=== PATIENT | female | born 1975 | race Caucasian/White ===

== ENCOUNTER 2018-08-14 01:24 | Outpatient (CLI) | payer BC, SELFPAY ==
--- NOTE | 2018-08-14 09:58 | DI.NM_ITS ---
SYMPTOMS/DIAGNOSIS: RIGHT UPPER QUADRANT PAIN, LOWER RIB PAIN, H/O BREAST CA AND RADIATION THERAPY BONE SCAN: The patient received 23.5 mCi of technetium 99m MDP and whole body imaging was performed according to protocol. There are no priors for comparison. There is normal activity seen in the kidneys and urinary bladder. There is symmetric increased radiotracer uptake in the shoulders, likely degenerative in nature. There are foci of increased radiotracer uptake in two contiguous right ribs anterolaterally. These appear to be the right 7th and 8th ribs. There is symmetric radiotracer uptake seen at the sternoclavicular joints bilaterally, which is likely degenerative. No other significant increased radiotracer uptake is seen in the axial or appendicular skeleton. IMPRESSION: 1. Likely degenerative changes involving the upper extremities. 2. Punctate radiotracer uptake in two contiguous ribs. This likely reflects a traumatic injury. Metastatic disease, though not entirely excluded, is considered less likely.
== END 2018-08-14 01:44 ==
PROVIDERS: PCP Family Medicine; Visit Provider Internal Medicine Medical Oncology
DX: R10.11 Right upper quadrant pain (principal); R07.81 Pleurodynia; Z85.3 Personal history of malignant neoplasm of breast; Z92.3 Personal history of irradiation
CPT/HCPCS: 78306

== ENCOUNTER 2019-04-14 01:27 | Outpatient (CLI) | payer BC, SELFPAY | END 2019-04-14 01:47 | PROVIDERS: PCP Family Medicine; Visit Provider Family Medicine | DX: R00.0 Tachycardia, unspecified (principal); I49.1 Atrial premature depolarization; I49.3 Ventricular premature depolarization | CPT/HCPCS: 93225 ==

== ENCOUNTER 2019-04-16 14:54 | Outpatient (CLI) | payer BC, SELFPAY ==
--- NOTE | 2019-04-20 09:47 | HOLTER_ITS ---
DATE OF DICTATION: April 20, 2019 STUDY INDICATION: Tachycardia. REQUESTING PROVIDER: Not available. FINDINGS: The patient was monitored for 2 days. Average heart rate 86 bpm, range 62 to 142 bpm. Rare ectopy. Five PVC's, no VT. 45 PAC's, no SVT. No pauses greater than 3 seconds. No high-degree heart block. No patient events. FINAL INTERPRETATION: No significant arrhythmias.
== END 2019-04-16 15:14 ==
PROVIDERS: PCP Family Medicine; Visit Provider Family Medicine
DX: R00.0 Tachycardia, unspecified (principal); I49.1 Atrial premature depolarization; I49.3 Ventricular premature depolarization
CPT/HCPCS: 93226

== ENCOUNTER 2020-02-11 01:48 | Outpatient (CLI) | payer BC, MEDICAID, SELFPAY ==
[2020-02-11 07:33] LABS: Hemoglobin A1C 4.9 % (3.8-5.6)
[2020-02-11 08:13] LABS: ALT 26 U/L (14-59); AST 20 U/L (15-37); Albumin 4.1 g/dL (3.4-5.0); Alkaline Phosphatase 64 U/L (46-116); Anion Gap 7.8 mmol/L (3-11); BUN 15 mg/dL (7-18); Bilirubin, Total 0.5 mg/dL (0.2-1.0); CO2 27.2 mmol/L (21.0-32.0); CREATININE 0.77 mg/dL (0.55-1.02); Calculated LDL 120 mg/dL (<100); Chloride 104 mmol/L (98-107); Cholesterol 203 mg/dL (<200); Glucose 85 mg/dL (74-106); HDL Cholesterol 65 mg/dL (40-60); Potassium 3.9 mmol/L (3.5-5.1); Sodium 139 mmol/L (136-145); Total Protein 7.3 g/dL (6.4-8.2); Triglyceride 91 mg/dL (<150)
[2020-02-11 08:31] LABS: Vitamin D 25 Total 36.6 ng/ml (30-100)
== END 2020-02-11 02:08 ==
PROVIDERS: PCP Family Medicine; Visit Provider Internal Medicine Medical Oncology
DX: C50.111 Malignant neoplasm of central portion of right female breast (principal); Z17.1 Estrogen receptor negative status [ER-]
CPT/HCPCS: 36415; 80053; 80061; 82306; 83036

== ENCOUNTER 2020-04-26 12:14 | Outpatient (REF) | payer BC, SELFPAY ==
--- NOTE | 2020-04-26 11:00 | PAPFT_PTH ---
PATIENT: Jennifer Carlos LOC: [facility] U#:[id number] AGE/SX: 45/F ROOM: RE04/26/[address]: Adele Haji MD, DC : 1975 BED: DIS: 04/26/2020 SPEC #: [id number] RECD: 04/26/20 11:00 STATUS: MANAV LOERA #: [id number] HENRY: 04/26/20 11:[address]: Adele Haji DEPT: [facility] Cytology RECD BY: Mckenzie Adams Tissues: 1 - CX/ENDOCX FOR PAP SMEARS Procedures: PAP THIN PREP/UVM Screening HPV DNA PROBE Comments: [id number]
== END 2020-04-26 12:34 ==
LOC: LBN 12:14
PROVIDERS: PCP Family Medicine; Visit Provider Family Medicine
DX: Z12.4 Encounter for screening for malignant neoplasm of cervix (principal); Z11.51 Encounter for screening for human papillomavirus (HPV)
CPT/HCPCS: 88142; 87624

== ENCOUNTER → 2022-06-04 02:07 | Outpatient (CLI) | payer BC, MEDICAID, SELFPAY ==
--- NOTE | 2022-06-04 11:55 | DI.MAMMO_ITS ---
Exam(s) MG MAMMO SCREENING 60 MIN DUR EXAM: MG MAMMO SCREENING 60 MIN DUR CLINICAL HISTORY: breast cancer screening,PERSONAL H/O BREAST CA, Z85.3 TECHNIQUE: Mammograms were interpreted according to the usual protocol including computer analysis w [employer] CAD system, tomosynthesis and C-view imaging. COMPARISON: 2015 through 2020 FINDINGS: The breasts are composed of heterogeneously dense fibroglandular densities, Breast Density category C . There is post lumpectomy scarring in the lateral subareolar region of the right breast. No suspicious masses or suspicious microcalcifications are seen. No skin thickening or abnormal axillary lymph nodes are seen. There has been no significant change from prior exams. IMPRESSION: BI-RADS Cat 2 - Benign Findings Yearly screening mammography is recommended. Breast Density Category C, heterogeneously Dense. The mammogram demonstrates the patient's breast tissue is dense. Dense breast tissue is very common a nd is not abnormal but dense breast tissue can make it harder to find cancer on a mammogram. Also, de nse breast tissue may increase breast cancer risk. This information about the result of the mammogram report was provided to the patient to raise their awareness. Use this report when you speak with the patient about their risks for breast cancer, which includes their family history. At that time, you may recommend additional screening tests (Ultrasound or MRI) as they might be useful based on their r isk. A negative radiographic report should not delay biopsy if a dominant or clinically suspicious mass is present. Up to ten percent of cancers are not identified on mammography. A negative report may reinforce clinical impression. Adenosis and dense breasts may obscure an underlying neoplasm. False positive reports average 6 to 10%.
== END ==
PROVIDERS: PCP Family Medicine; Visit Provider Family Medicine
DX: Z12.31 Encounter for screening mammogram for malignant neoplasm of breast (principal); Z85.3 Personal history of malignant neoplasm of breast; Z98.890 Other specified postprocedural states
CPT/HCPCS: 77063; 77067

== ENCOUNTER 2022-10-12 06:03 | Day surgery (SDC) | payer BC, MEDICAID, SELFPAY ==
--- NOTE | 2022-10-11 19:48 | PDOC.DSDIS_ITS ---
Date of service: 10/12/22 Time of Service: 07:59 Discharge Plan Disposition Patient Disposition: Home Condition: Good Discharge Details Reason For Visit: Screening colonoscopy Attending Provider: Jeffery Livingston Primary Care Provider: Adele Haji Home Meds and New Rx's Prescriptions: Continued cholecalciferol (vitamin D3) 2,000 unit capsule 2,000 unit PO DAILY calcium carb and citrate-vitD3 1 EACH tablet extended release 1 ea PO DAILY lidocaine [Lidoderm] 5 % adhesive patch,medicated 1 patch topical DAILY Qty: 30 6RF Rx Instructions: leave on most painful area for up to 12 hrs Discontinued bisacodyl [Dulcolax (bisacodyl)] 5 mg tablet,delayed release (DR/EC) 5 mg PO ONCE Qty: 4 0RF Rx Instructions: Take according to provider's instructions for colonoscopy prep. polyethylene glycol 3350 17 gram/dose powder 17 g PO ONCE Qty: 238 0RF Rx Instructions: To be taken as directed by prescriber's office for colonoscopy prep. Discharge Instructions Instructions: Colorectal Polyps (GEN) Additional Instructions: Jennifer, we were able to complete your colonoscopy today without any difficulty. I found 2 polyps. Based on their location, and the characteristics, I suspect these are benign hyperplastic polyps. I removed both of them, and the final pa thology report will clarify what they are. I will notify you when we have those results. Otherwise, your colonoscopy was perfect. 1. If tolerated, consume a soft, low fiber diet for 1-2 days. 2[address] Do not drive, drink alcohol, operate machinery, make critical decisions, or do activities that require coordination or balance for 24 hours. 3. Because air was put into your colon during the procedure, expelling air from your rectum (passing gas or farting) is normal. 4. You may not have a bowel movement for 1-3 days because of the colonoscopy prep. This is normal. 5. Go directly to the emergency room if you notice any of the following: Develop chills (warm to touch), or if you have a thermometer and your temperature is above 101 Difficulty breathing or difficultly swallowing Persistent vomiting Severe abdominal pain, other than gas cramps Severe chest pain Black, tarry stools Any bleeding ? exceeding one tablespoon 6. Call your physician if the site where your intravenous was started becomes red, swollen, painful, and warm to touch. 7. Your physician has reviewed your pre-procedure medications. Please continue to take those medications as previously ordered. You will be given specific information/education regarding any changes to your medications before leaving. Stand Alone Forms: Vanesa Castro (MELLISSAU) Activity:: Activity as Tolerated Diet:: As Tolerated Discharge Orders Discharge Orders: Discharge Order (Routine); Ordered 10/11/22 Ordered By: Jeffery Livingston DS: Diagnosis Discharge Diagnosis (1) Screening for colon cancer: Status: Acute Asessment and Plan: Follow-up on polypectomy results
--- NOTE | 2022-10-11 19:50 | COLE_ITS ---
Date of service: 10/12/22 Time of Service: 08:01 Colonoscopy Report Date of procedure: 10/12/22 Pre-op diagnosis general: Screening colonoscopy Post-op diagnosis procedure note: other (Colorectal polyps) Procedure: Colonoscopy with polypectomy Surgeon: Jeffery Livingston Anesthesia Type: General:No Airway Estimated blood loss (mL): 10 Pathology: other (Polyp, polyp at 30 cm) Complications: None Disposition: same day Indications: Jennifer is a 47 year old woman who is here for a screening colonoscopy Prep: Miralax/Dulcolax Procedure Start Time: 07:37 Procedure End Time: 07:53 Retraction Time: 11 Findings: Rectal polyp, and polyp at 30 cm Procedure Description: After the induction of monitored anesthetic care, and with the patient in left lateral decubitus position, I began by performing an external anorectal exam.? Perineum and skin were normal, as was the anal verge.? There was no evidence of external hemorrhoids.? Next, I performed a digital rectal exam.? I did not appreciate any abnormal findings.? Next, I advanced a colonoscope into the rectal vault.? I performed retroflexion.? This was normal.? There was a single rectal polyp. I removed it with cold forceps polypectomy. It was approximately 0.25 cm and sessile. Using insufflation, I then advanced the colonoscope beyond the rectal folds and into the sigmoid colon before advancing towards the cecum.? The quality of the prep was excellent.? The scope was noted to be in the cecum by identification of the ileocecal valve and appendiceal orifice.? I then began withdrawing the colonoscope using repeated irrigation as necessary for full evaluation of the colonic mucosa. Around 30 cm from the anal verge I identified a 0.25 cm polyp. ?It appeared sessile in character. ?I was able to remove this with a cold forcep polypectomy. ?I examined the site, and there was minimal bleeding. ?Once this was completed, I continued to withdraw the scope and examine the remainder of the colonic mucosa.?Once the scope was withdrawn to the level of the rectum, great care was taken to examine portions of the rectal folds.? Finally, the scope was withdrawn and the patient was brought to the same-day surgery recovery unit as the anesthetic wore off. ?The findings and ins tructions were shared with the patient prior to discharge.
[2022-10-12 06:33] VITALS: BP 117/81; PULSE 88; RESP 16; TEMP 36.3; O2SAT 99
--- NOTE | 2022-10-12 07:01 | W.ANESPRE ---
General Info Date of Service Date Performed: 10/12/22 Height: 5 ft 3 in Weight: 85.2 kg Body Mass Index (BMI): 33.3 Surgical Procedure: Operation Date: 10/12/22 07:35 Proposed Procedure Side Surgeon p Colonoscopy Jeffery Livingston MD Meds Allergies and Home Medications Allergies Allergy/AdvReac Type Severity Reaction Status Date / Time No Known Drug Allergies Allergy Unknown Verified 10/10/22 11:19 Home Medication Medication Instructions Recorded calcium carb,cit ER 600 mg-vit D3 1 ea PO DAILY 10/22/17 12.5 mcg (500 unit) tablet,ext.rel cholecalciferol (vitamin D3) 50 2,000 unit PO DAILY 09/22/18 mcg (2,000 unit) capsule lidocaine 5 % topical patch 1 patch topical DAILY #30 ea 06/23/20 (Lidoderm) Current Visit Medications: Current Medications Generic Name Dose Route Start Last Admin Trade Name Freq PRN Reason Stop Dose Admin Hyoscyamine Sulfate 0.125 mg 10/11/22 19:52 Hyoscyamine 0.125 Mg Sl/Oral/Chew SL DIRECTED PRN Ringer's Solution 1,000 mls @ 80 mls/hr 10/12/22 06:00 IV 10/12/22 23:59 INFUSION LUIS ENRIQUE IV Miscellaneous Supplies 1 each 10/12/22 06:00 Iv Access IV 10/12/22 23:59 DIRECTED LUIS ENRIQUE Ondansetron HCl 4 mg 10/11/22 19:52 Ondansetron 4 Mg/2 Ml Vial IVP Q4H PRN PRN Nausea / Vomiting Sodium Chloride 0 ml 10/12/22 06:00 Normal Saline Flush 10 Ml Syr IV 10/12/22 23:59 PRN PRN Sodium Chloride 0 ml 10/12/22 06:00 Normal Saline 10 Ml Vial IJ 10/12/22 23:59 DIRECTED PRN Sterile Water 0 ml 10/12/22 06:00 Water,Injection,Sterile 10 Ml Vial IJ 10/12/22 23:59 DIRECTED PRN PFSH Active Problems Active Problems: Problem Status Onset Code Screening for colon cancer Z12.11 Refusal of blood transfusions as patient is [employer] Z53.1 Disc displacement, 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 Gastroesophageal reflux disease K21.9 Lung nodules R91.8 Personal history of breast cancer 10/04/16 Z85.3 Elbow pain M25.529 Migraine G43.909 Female infertility N97.9 Fatigue 04/17/12 R53.83 Family history of malignant neoplasm of ovary 01/14/12 Z80.41 Family history of malignant neoplasm of breast 01/14/12 Z80.3 Family history of colon cancer 02/10/16 Z80.0 Encounter for routine checking of intrauterine contraceptive device 02/10/16 Z30.431 Closed fracture of multiple ribs of right side 01/01/17 S22.41XA Annual physical exam Z00.00 Elbow pain M25.529 Advance care planning Z71.89 Osteopenia M85.80 Medical History Medical History Breast cancer 6 years post treatment Closed fracture of multiple ribs of right side 01/01/17 initial encounter. [facility] [place]--non-displaced fracture of the right 5th and 6th rib with no bone lesions Family history of breast cancer (01/14/12) Mat aunt Family history of colon cancer (02/10/16) MGM, MGF, Mat 1st cousin at age 45 Family history of ovarian cancer (01/14/12) Mat aunt Fatigue 04/17/12 unspecified Female infertility unspecified but subsequently 2 living children IUD surveillance (02/10/16) Migraine Medical History Comments:: 10/12/22 - [employer]ism Surgical History Surgical History section X 2-pt denies states 2 natural births Colonoscopy - IV Sedation (05/25/16) Endometrial Biopsy 10/22/17 Herniated disc repair Tobacco Smoking/Tobacco Use Status: Never Passive smoking exposure: No Second hand exposure: No Alcohol Alcohol Intake: current Alcohol intake frequency: a few times a week Alcohol type: wine Substance Use Substance use: Never Substance use type: does not use Vital Signs and Lab Results Vital Signs Most Recent Vital Signs in EMR: Most Recent Vital Signs Temp Pulse Resp BP Pulse Ox 36.3 C L 88 16 117/81 99 10/12/22 06:33 10/12/22 06:33 10/12/22 06:33 10/12/22 06:33 10/12/22 06:33 Point of Care Results Point of Care Results: POC- Test(urine) Negative 10/12/22 06:46 Lab Results Blood Type / Crossmatch: No Data to Display Complete Blood Count: No Data to Display Complete Metabolic Panel: No Data to Display Liver Function Panel: No Data to Display Coagulation Panel: No Data to Display Cardiac Panel: No Data to Display Arterial Blood Gas: No Data to Display Venous Blood Gas: No Data to Display Pancreas Panel: No Data to Display Thyroid Panel: No Data to Display Infectious Disease: No Data to Display Blood Cultures: No Data to Display Toxicology Panel: No Data to Display Panel: No Data to Display Anesthesia Assessment and Plan Anesthesia History Personal History: No History of Anesthesia Complications Family History: No Family History of Anesthesia Complications Exercise Tolerance Exercise Tolerance: Metabolic Equivalents>4 Pertinent Negatives Pertinent Negatives: No Major Cardiovascular Symptoms or Complaints and No Major Pulmonary Symptoms or Complaints Cardiac & Pulmonary Exam Cardiac Exam: Normal S1/S2 Heart Sounds Pulmonary Exam: Clear Bilateral Breath Sounds Implantable Cardiac Device Does patient have a Pacemaker or an ICD?: No Airway Exam Known Difficult Airway: No Mallampati Class: 2 Mouth Opening: Normal (> 3cm) Thyromental Distance: Greater than 3 cm Neck Range of Motion: Full ROM Neck Circumference: Normal Teeth Condition: Normal Dentition ASA Classification ASA Score: ASA 2 Emergency Case?: No NPO Status NPO Status: NPO Clears >2 hours, Solids >8 hours Status Status: Negative HCG Anesthesia Plan Resuscitation Status: Full Code Anesthesia Technique: General Anesthesia Airway Planned: Natural Airway Monitors Used: Standard Monitors
[2022-10-12 07:05] VITALS: BMI 33.3
[2022-10-12] MEDS: Lactated Ringers 1,000 ML 80 ML IV (07:15)
--- NOTE | 2022-10-12 07:40 | BOWEL_PTH ---
PATIENT: Jennifer Carlos LOC: [facility] U#:[id number] AGE/SX: 47/F ROOM: RE10/12/[address]: Jeffery Livingston MD : 1975 BED: DIS: 10/12/2022 SPEC #: [id number] RECD: 10/12/22 12:45 STATUS: MANAV RE #: [id number] HENRY: 10/12/22 07:[address]: Jeffery Livingston DEPT: Surgical Specimen RECD BY: Nila Colvin ENTERED: 10/12/22 12:46 SP TYPE: Bowel OTHR DR: Adele Haji MD, DC Tissues: 1 - BIOPSY BOWEL 2 - BIOPSY BOWEL Procedures: GROSS AND MICRO LEVEL 4 Comments: [id number]
[2022-10-12 07:59] VITALS: BP 117/81; PULSE 88; RESP 16; TEMP 36; O2SAT 99
[2022-10-12 08:27] VITALS: BP 112/79; PULSE 72; TEMP 36.1; O2SAT 99
--- NOTE | 2022-10-12 09:43 | W.ANESPOSTOP ---
Postoperative Evaluation Date, Time and Location Date Performed: 10/12/22 Time Performed: 08:07 Patient Location: Day Surgery Unit Vital Signs Most Recent Imported Vital Signs: Most Recent Vital Signs Temp Pulse Resp BP Pulse Ox 36.1 C L 72 16 112/79 99 10/12/22 08:27 10/12/22 08:27 10/12/22 07:59 10/12/22 08:27 10/12/22 08:27 Pain Score Most Recent Pain Score: Most Recent Pain Score Pain Level 0 10/12/22 08:27 Assessment Mental Status: Awake (Alert & Oriented to Patient Baseline) Airway and Respiratory Function: Patent airway with normal (patient baseline) respiratory exam Cardiovascular Function: Hemodynamically Stable Hydration Status: Adequately Hydrated Nausea & Vomiting: No Nausea or Vomiting Pain: Pt. Denies Any Pain Peripheral Nerve Block: Patient did not receive a nerve block
== END 2022-10-12 08:45 | disposition home or self-care (01) ==
PROVIDERS: PCP Family Medicine; Visit Provider Surgery
PROC: 0DJD8ZZ Inspection of Lower Intestinal Tract, Via Natural or Artificial Opening Endoscopic (ICD-10-PCS; CPT 45378; principal; 2022-10-12 07:30)
DX: Z12.11 Encounter for screening for malignant neoplasm of colon (principal); K63.5 Polyp of colon; K62.1 Rectal polyp; Z85.3 Personal history of malignant neoplasm of breast; Z80.0 Family history of malignant neoplasm of digestive organs
CPT/HCPCS: 45380; 81025; 88305

== ENCOUNTER → 2023-06-19 00:39 | Outpatient (CLI) | payer BC, MEDICAID, SELFPAY ==
--- NOTE | 2023-06-19 08:00 | DI.MAMMO_ITS ---
Exam(s) MG MAMMO SCREENING 60 MIN DUR EXAM: MG MAMMO SCREENING 60 MIN DUR CLINICAL HISTORY: breast cancer screening,personal h/o breast ca, z85.3 TECHNIQUE: Bilateral full field digital CC and MLO mammographic images were obtained with 3D tomosyn thesis and utilizing computer aided detection (CAD). COMPARISON: Available for comparison. FINDINGS: Masses/Architectural Distortion: Status post right lumpectomy. Stable nodules are seen in the left b reast. No new areas of architectural distortion are seen. Microcalcifications: No suspicious pleomorphic-type are seen. Skin Thickening/Nipple Retraction: None. IMPRESSION: 1. No significant interval change with no specific features of malignancy noted. 2. Unless there is more urgent need, screening mammography is recommended, as per [employer] guidelines. 3. The findings were discussed with the patient on the date of the examination. BI-RADS Category 2 - Benign Findings Breast Density - Category B - Scattered areas of fibroglandular density Breast density category C or D implies that the patient has dense breast tissue. Dense breast tissue is very common and is not abnormal but dense breast tissue can make it harder to find cancer on a ma mmogram. Also, dense breast tissue may increase their breast cancer risk. This information about the result of the mammogram report was provided to the patient to raise their awareness. Use this report when you speak with the patient about their risks for breast cancer, which includes their family hist ory. At that time, you may recommend for more screening tests (Ultrasound or MRI) as they might be us eful based on their risk. A negative radiographic report should not delay biopsy if a dominant or clinically suspicious mass is present. Up to ten percent of cancers are not identified on mammography. A negative report may reinforce clinical impression. Adenosis and dense breasts may obscure an underlying neoplasm. False positive reports average 6 to 10%. Patient will receive a letter notifying them of these results.
== END ==
PROVIDERS: PCP Family Medicine; Visit Provider Family Medicine
DX: Z85.3 Personal history of malignant neoplasm of breast (principal); Z12.31 Encounter for screening mammogram for malignant neoplasm of breast; R92.323 Mammographic fibroglandular density, bilateral breasts
CPT/HCPCS: 77063; 77067

== ENCOUNTER 2023-06-25 09:57 | Outpatient (REF) | payer BC, SELFPAY ==
--- NOTE | 2023-06-25 08:45 | PAPFT_PTH ---
PATIENT: Jennifer Carlos LOC: [facility] U#:[id number] AGE/SX: 48/F ROOM: RE06/25/[address]: Adele Haji MD, DC : 1975 BED: DIS: 06/25/2023 SPEC #: [id number] RECD: 06/25/23 12:43 STATUS: MANAV REQ #: [id number] HENRY: 06/25/23 08:[address]: Adele Haji DEPT: [facility] Cytology RECD BY: Nila Colvin Tissues: 1 - CX/ENDOCX FOR PAP SMEARS Procedures: PAP THIN PREP/UVM Screening HPV DNA PROBE Comments: [id number]
== END 2023-06-25 09:58 | disposition home or self-care (01) ==
LOC: LBN 09:57
PROVIDERS: PCP Family Medicine; Visit Provider Family Medicine
DX: Z12.4 Encounter for screening for malignant neoplasm of cervix (principal)
CPT/HCPCS: 88142; 87624

== ENCOUNTER → 2023-06-27 03:42 | Outpatient (CLI) | payer BC, SELFPAY ==
--- NOTE | 2023-06-27 07:00 | DI.DEXA_ITS ---
Exam(s) XR DEXA BONE DENSITY W/WO CONSTANCE EXAM: XR DEXA BONE DENSITY W/WO CONSTANCE CLINICAL HISTORY: h/o breast cancer,z85.3,screening for osteoporosis TECHNIQUE: [employer] C densitometer analysis of left hip, lumbar spine and left forearm. Lat eral survey image of the thoracic and lumbar spine. COMPARISON: DX DEXA BONE DENSITY WITH CONSTANCE from 12/04/2016 FINDINGS: Lateral view of the thoracic and lumbar spine shows no evidence of compression fractures. Bone mineral density measurements of the lumbar spine correspond to a total T-score of 0.7, in the n ormal range. This represents a 5.1 percent increase from 2017. Bone mineral density measurements of the left hip correspond to a total T-score of 0.5. This is not significantly changed from 2017. The femoral neck T-score is -0.2 in the normal range.. Theleft forearm bone mineral density measurements correspond to a T-score of the distal 3rd of -0.6, in the normal range.. IMPRESSION: Normal bone mineral density.
== END ==
PROVIDERS: PCP Family Medicine; Visit Provider Family Medicine
DX: Z85.3 Personal history of malignant neoplasm of breast (principal); Z13.820 Encounter for screening for osteoporosis
CPT/HCPCS: 77080

== ENCOUNTER 2024-06-30 02:38 | Outpatient (CLI) | payer BC, SELFPAY ==
--- NOTE | 2024-06-30 | DI.US_ITS ---
Exam(s) US BREAST LT COMPLETE MG MAMMO SCREENING 60 MIN DUR EXAM: MG MAMMO SCREENING AND COMPLETE LEFT BREAST ULTRASOUND CLINICAL HISTORY: breast cancer screening,PERSONAL H/O BREAST CA,Z12.39. TECHNIQUE: Bilateral full field digital CC and MLO mammographic images were obtained with 3D tomosyn thesis and utilizing computer aided detection (CAD). Additional spot compression view of the left breast was performed COMPLETE LEFT BREAST ULTRASOUND was also performed including all 4 quadrants of the left breast and l eft axilla region. COMPARISON: Prior mammograms were reviewed. There has been prior right breast lumpectomy in 2016 FINDINGS: MAMMOGRAM: Right breast lumpectomy site remains stable. There are no new significant mammographic findings in t he right breast. In the left breast there are a few round nodular densities at approximately 12 o'clock position, aver age size approximately 1 cm. Largest is either a single cyst or nodule measuring 2.1 by 1.0 cm or 2 adjacent smaller cysts are nodules. Additional spot compression view does not dissipate these findings. There are no malignant-appearing microcalcification groups in this region or elsewhere in either [address]. There is no significant architectural distortion nor skin thickening-retraction. We proceeded with ultrasound... COMPLETE LEFT BREAST ULTRASOUND: There are multiple cysts at the 12 o'clock position of the left breast, these corresponding to the fi ndings on the mammogram. The largest measures 1.8 by 0.6 cm. Either single cyst or 2 adjacent cysts . Other smaller cysts also noted in this region Most importantly, there are no solid lesions in all 4 quadrants of the left breast nor in the retroar eolar region. Scanning of the left axilla is negative for adenopathy. IMPRESSION: 1. Stable right breast lumpectomy site. No radiographic evidence of malignancy in the right breast. 2. Left breast nodules which are shown to be benign cysts on ultrasound performed following today's m ammogram. No solid lesions seen on ultrasound. Appropriate follow-up is to keep this patient on her yearly mammogram schedule, with earlier imaging if a self detected breast change is noted. BI-RADS Category 2 - Benign Findings Breast Density - Category C - Heterogeneously dense Breast density Category C or D implies that the patient has dense breast tissue. Dense breast tissue can make it harder to find cancer on a mammogram. Dense breast tissue is also associated with an incr eased risk of breast cancer. This information about the result of the mammogram report was provided to the patient to raise their awareness. Use this report when you speak with the patient about their risks for breast cancer, which includes their family history. At that time, you may recommend additional screening tests (Ultrasoun d or MRI) as these tests may add significant information. A negative radiographic report should not delay biopsy if a dominant or clinically suspicious mass is present. Up to ten percent of cancers are not identified on mammography. A negative report may reinforce clinical impression. Adenosis and dense breasts may obscure an underlying neoplasm. False positive reports average 6 to 10%. Patient will receive a letter notifying them of these results.
== END 2024-06-30 02:58 ==
PROVIDERS: PCP Family Medicine; Visit Provider Family Medicine
DX: Z12.31 Encounter for screening mammogram for malignant neoplasm of breast (principal); R92.333 Mammographic heterogeneous density, bilateral breasts; D24.2 Benign neoplasm of left breast
CPT/HCPCS: 76642; 77063; 77067

== ENCOUNTER → 2025-06-18 03:29 | Outpatient (CLI) | payer BC, SELFPAY ==
--- NOTE | 2025-06-18 08:11 | DI.RAD_ITS ---
Exam(s) XR SHOULDER RT COMPLETE 2+V EXAM: XR SHOULDER RT COMPLETE 2+V CLINICAL HISTORY: r shoulder pain; h/o breast cancer,m25.511. TECHNIQUE: 2D digital imaging was performed of the right shoulder. Four images were obtained. AP, Grashey, Y-view and axillary views were obtained. COMPARISON: No exams were available for comparison FINDINGS: BONES: No acute fracture is present. No bony destructive lesion is seen. JOINTS: No dislocation present. The joint spaces are well maintained. SOFT TISSUE: Normal. IMPRESSION: Unremarkable radiographs of the right shoulder. DATA REPOSITORY: RADIATION DOSE DELIVERED:
== END ==
PROVIDERS: PCP Family Medicine; Visit Provider Family Medicine
DX: Z85.3 Personal history of malignant neoplasm of breast (principal); M25.511 Pain in right shoulder
CPT/HCPCS: 73030

== ENCOUNTER → 2025-07-07 00:39 | Outpatient (CLI) | payer BC, SELFPAY ==
--- NOTE | 2025-07-07 12:17 | DI.MAMMO_ITS ---
Exam(s) MG MAMMO SCREENING 60 MIN DUR EXAM: MG MAMMO SCREENING 60 MIN DUR CLINICAL HISTORY: breast cancer screening,personal h/o breast ca,z12.39 TECHNIQUE: Bilateral full field digital CC and MLO mammographic images were obtained with 3D tomosynthesis and utilizing computer aided detection (CAD). COMPARISON: Comparison is made with prior examinations. FINDINGS: The patient is status post right lumpectomy. Masses/Architectural Distortion: No suspicious masses or areas of architectural distortion are present. Microcalcifications: No suspicious pleomorphic-type are seen. Skin Thickening/Nipple Retraction: None. IMPRESSION: 1. No significant interval change with no specific features of malignancy noted. 2. Unless there is more urgent need, screening mammography is recommended, as per [employer] guidelines. BI-RADS Category 2 - Benign Findings Breast Density - Category C - The breast are heterogeneously dense, which may obscure small masses. Breast density Category C or D implies that the patient has dense breast tissue. Dense breast tissue can make it harder to find cancer on a mammogram. Dense breast tissue is also associated with an increased risk of breast cancer. This information about the result of the mammogram report was provided to the patient to raise their awareness. Use this report when you speak with the patient about their risks for breast cancer, which includes their family history. At that time, you may recommend additional screening tests (Ultrasound or MRI) as these tests may add significant information. A negative radiographic report should not delay biopsy if a dominant or clinically suspicious mass is present. Up to ten percent of cancers are not identified on mammography. A negative report may reinforce clinical impression. Adenosis and dense breasts may obscure an underlying neoplasm. False positive reports average 6 to 10%. Patient will receive a letter notifying them of these results.
== END ==
PROVIDERS: PCP Family Medicine; Visit Provider Family Medicine
DX: Z12.31 Encounter for screening mammogram for malignant neoplasm of breast (principal); Z85.3 Personal history of malignant neoplasm of breast
CPT/HCPCS: 77063; 77067